=== PATIENT | female | born 1970 | race African-American/Black ===

== ENCOUNTER → 2019-09-23 15:51 | Emergency (ER) | payer SELFPAY ==
[~2019-09-23] VITALS: Ht 157.5 cm; Wt 68.0 kg
[~2019-09-23 15:51] MED LIST: GABA300C10 PO; METOCLOPRAMIDE HCL 5MG/ml INJ 2ml VIAL IM ONE; METOCLOPRAMIDE HCL 5MG/ml INJ 2ml VIAL IV ONE; NALBUPHINE HCL 10 MG/1ml INJECTION IM ONE; NALBUPHINE HCL 10 MG/1ml INJECTION IV ONE; OMEP20CA74 PO
[2019-09-23 17:57] VITALS: BP 129/89
== END | disposition home or self-care (01) ==
LOC: EDUNIT# 15:50 → ER 15:51 → EDBD 15:51
DX: S20.211A Contusion of right front wall of thorax, initial encounter (principal); M62.838 Other muscle spasm; S20.229A Contusion of unspecified back wall of thorax, initial encounter; K21.9 Gastro-esophageal reflux disease without esophagitis; V89.2XXA Person injured in unspecified motor-vehicle accident, traffic, initial encounter; Y93.89 Activity, other specified; Y92.410 Unspecified street and highway as the place of occurrence of the external cause; Y99.8 Other external cause status; Z88.0 Allergy status to penicillin; Z88.6 Allergy status to analgesic agent
CPT/HCPCS: 70450; 72125; 72128; 72131; 96372; 99284; J2300; J2765

== ENCOUNTER 2020-06-20 20:30 | Inpatient (IN) | payer MEDICAID ==
[~2020-06-20] VITALS: Ht 160 cm; Wt 56.7 kg
[~2020-06-20 20:30] MED LIST changes: -METOCLOPRAMIDE HCL 5MG/ml INJ 2ml VIAL IM ONE; -METOCLOPRAMIDE HCL 5MG/ml INJ 2ml VIAL IV ONE; -NALBUPHINE HCL 10 MG/1ml INJECTION IM ONE; -NALBUPHINE HCL 10 MG/1ml INJECTION IV ONE
[2020-06-20] MEDS ORDERED: ONDANSETRON HCL 4 MG/2 ML VIAL IV ONE (23:15)
[2020-06-20] MEDS ORDERED: MORPHINE SULFATE 4 MG/ML SYR/VIAL IV ONE (23:15)
[2020-06-20 23:41] LABS: Basophils # (auto) 0.1 10 ^3/uL (0-0.2); Basophils % (auto) 0.7 % (0.0-2.0); Eosinophils # (auto) 0 10 ^3/uL (0-0.8); Eosinophils % (auto) 0.1 % (0.0-7.0); Hematocrit 39.9 % (36.0-46.0); Hemoglobin 13.2 g/dL (12.2-16.2); Lymphocytes # (auto) 1.6 10 ^3/uL (0.4-5.4); Lymphocytes % (auto) 17.3 % (10.0-50.0); Mean Corpuscular Hemoglobin 33.1 pg (28.0-32.0); Mean Corpuscular Volume 100.2 fL (80.0-100.0); Monocytes # (auto) 0.7 10 ^3/uL (0-1.3); Monocytes % (auto) 6.9 % (0.0-12.0); Neutrophils # (auto) 7.1 10 ^3/uL (1.6-8.6); Nucleated Red Blood Cells % 0.2 %; Platelet Count (auto) 87 10^3/uL (140-450); Red Blood Cells 3.99 10^6/uL (4.0-5.20); Red Cell Distribution Width 14.6 % (11.8-14.3); White Blood Cell 9.5 10^3/uL (4.4-10.8)
[2020-06-20 23:56] LABS: INR 1.13 (0.9-1.15); Partial Thromboplastin Time 29.9 sec (23.0-31.2)
[2020-06-21 01:01] LABS: Albumin 2.2 g/dL (3.4-5.0); BUN/Creatinine Ratio 10.3; Calcium 8.2 mg/dL (8.5-10.1); Potassium 3.6 mmol/L (3.5-5.1)
[2020-06-21 01:04] LABS: Bilirubin, Total 1.7 mg/dL (0.2-1.0); Total Protein 6.7 g/dL (6.4-8.2)
[2020-06-21] MEDS ORDERED: SODIUM CHLORIDE 0.9% 1,000 ML IV ONE (02:00)
[2020-06-21] MEDS ORDERED: diphenhdrAMINE HCL 50 MG/1 ML VL IV ONE (04:30)
[2020-06-21] MEDS ORDERED: MORPHINE SULFATE 4 MG/ML SYR/VIAL IV ONE (04:30)
[2020-06-21 04:34] LABS: Urine Bacteria NONE SEEN /hpf (None Seen); Urine Blood Negative /uL (Negative); Urine Hyaline Cast MANY /lpf (0 - 2); Urine Mucus MODERATE (None Seen); Urine Specific Gravity 1.024 (1.001-1.035); Urine WBC <1 /hpf (0 - 5)
[2020-06-21] MEDS ORDERED: ACETAMINOPHEN 325 MG TAB PO PRN (06:45)
[2020-06-21] MEDS ORDERED: LORazepam 0.5 MG TAB PO PRN (06:45)
[2020-06-21] MEDS ORDERED: DOCUSATE SOD 100 MG CAP PO PRN (06:45)
[2020-06-21] MEDS ORDERED: ONDANSETRON HCL 4 MG/2 ML VIAL IV PRN (06:45)
[2020-06-21] MEDS ORDERED: TEMAZEPAM 15 MG CAP PO PRN (06:45)
[2020-06-21 08:40] LABS: Calcium 7.4 mg/dL (8.5-10.1); Potassium 3.9 mmol/L (3.5-5.1)
[2020-06-21 08:43] LABS: BUN/Creatinine Ratio 10.3
[2020-06-21] MEDS: MORPHINE SULF INJ 2 MG/ML SYRINGE 1ML IV PRN ×2 (09:09→14:25)
[2020-06-21 09:37] LABS: Basophils # (auto) 0 10 ^3/uL (0-0.2); Eosinophils # (auto) 0 10 ^3/uL (0-0.8); Eosinophils % (auto) 0.2 % (0.0-7.0); Hemoglobin 12.9 g/dL (12.2-16.2); Red Blood Cells 3.88 10^6/uL (4.0-5.20); White Blood Cell 9.5 10^3/uL (4.4-10.8)
[2020-06-21 09:39] LABS: Basophils % (auto) 0.2 % (0.0-2.0); Hematocrit 39.8 % (36.0-46.0); Lymphocytes % (auto) 20.8 % (10.0-50.0); Mean Corpuscular Hemoglobin 33.3 pg (28.0-32.0); Mean Corpuscular Hgb Conc. 32.5 g/dL (32.0-36.0); Mean Corpuscular Volume 102.6 fL (80.0-100.0); Monocytes # (auto) 0.7 10 ^3/uL (0-1.3); Monocytes % (auto) 7.5 % (0.0-12.0); Neutrophils # (auto) 6.8 10 ^3/uL (1.6-8.6); Neutrophils % (auto) 71.3 % (37.0-80.0); Nucleated Red Blood Cells % 0.2 %; Platelet Count (auto) 82 10^3/uL (140-450); Red Cell Distribution Width 15.2 % (11.8-14.3)
--- NOTE | 2020-06-21 10:05 | NUR ---
[facility] admit from ER ALEKSANDRA,NOEL admitted to [facility] after SBAR received. Patient oriented to ANEL BHAKTA RN primary RN, unit, room, bed, and unit policies regarding patient care and visiting hours. Patient weighed by bedscale and encouraged to call if they need something. All questions and concerns addressed, patient verbalized understanding.
[2020-06-21 10:26] VITALS: BP 140/106
[2020-06-21] MEDS: HYDROcodone-ACET 5/325MG TAB PO PRN ×2 (11:56→20:04)
[2020-06-21] MEDS ORDERED: HYDR-531 PO (12:05)
[2020-06-21 13:00] VITALS: BP 139/105
[2020-06-21] MEDS ORDERED: PROPRANOLOL HCL 20 MG TAB PO ONE ×2 (13:30→13:45)
[2020-06-21] MEDS ORDERED: IOHEXOL 300 MG/ML 100ML BOTTLE IJ ONE (16:04)
[2020-06-21 17:20] VITALS: BP 122/95
--- NOTE | 2020-06-21 18:59 | NUR ---
Closing Shift Note Patient resting in bed. No distress noted. Will endorse care to the manufacturing supervisor 2nd shift RN.
[2020-06-21] MEDS: PROPRANOLOL HCL 20 MG TAB PO SCH (20:04)
--- NOTE | 2020-06-21 21:00 | NUR ---
Opening Shift Note Assumed care of patient, awake and alert. No S/S of distress/SOB, C/O ABDOMINAL PAIN, 5/10, NORCO GIVEN ORDERED. Instructed on POC and to call for assist PRN, will continue to monitor for changes Q1hr and PRN. Endorsed care to ANGELA Aleman.
--- NOTE | 2020-06-21 21:15 | NUR ---
Patient resting comfortably in bed no distress noted. Abdomen large and distended. Resp even and unlabored. No SOB.
[2020-06-21 22:00] VITALS: BP 110/94
[2020-06-21] MEDS ORDERED: PROPRANOLOL HCL 20 MG TAB PO SCH (22:00)
[2020-06-22] MEDS: HYDROcodone-ACET 5/325MG TAB PO PRN ×3 (04:27→20:44)
--- NOTE | 2020-06-22 04:27 | NUR ---
Patient complains of pain to right shoulder, lower back and lower abdomen. Pain rated 7/10; medicated with [place] 5/325 mg.
[2020-06-22 05:00] VITALS: BP 107/76
[2020-06-22 06:06] LABS: Basophils # (auto) 0.1 10 ^3/uL (0-0.2); Basophils % (auto) 0.6 % (0.0-2.0); Lymphocytes # (auto) 2.4 10 ^3/uL (0.4-5.4); Neutrophils # (auto) 6.4 10 ^3/uL (1.6-8.6)
[2020-06-22 06:08] LABS: Eosinophils # (auto) 0 10 ^3/uL (0-0.8); Eosinophils % (auto) 0.4 % (0.0-7.0); Hematocrit 37.9 % (36.0-46.0); Hemoglobin 12.6 g/dL (12.2-16.2); Mean Corpuscular Hemoglobin 33.7 pg (28.0-32.0); Mean Corpuscular Hgb Conc. 33.2 g/dL (32.0-36.0); Mean Corpuscular Volume 101.5 fL (80.0-100.0); Monocytes # (auto) 0.7 10 ^3/uL (0-1.3); Monocytes % (auto) 6.9 % (0.0-12.0); Neutrophils % (auto) 67.1 % (37.0-80.0); Nucleated Red Blood Cells % 0.3 %; Platelet Count (auto) 80 10^3/uL (140-450); Red Blood Cells 3.73 10^6/uL (4.0-5.20); Red Cell Distribution Width 14.7 % (11.8-14.3); White Blood Cell 9.5 10^3/uL (4.4-10.8)
[2020-06-22 06:31] LABS: BUN/Creatinine Ratio 11.5
[2020-06-22 06:34] LABS: Bilirubin, Total 1.1 mg/dL (0.2-1.0); Total Protein 6.3 g/dL (6.4-8.2)
--- NOTE | 2020-06-22 07:30 | NUR ---
Opening Shift Note Assuming care of patient at this time. Patient is awake and alert. Patient denies pain. Patient states, "I feel better today." Patient shows no signs or symptoms of distress or shortness of breath. Bed is locked and lowered with side rails up x2. Instructed patient on the plan of care for today and to call for assistance as needed. Call light within reach. Will continue to round hourly and as needed.
[2020-06-22 09:00] VITALS: BP 97/74
[2020-06-22] MEDS: SPIRONOLACTONE 25 MG TAB PO SCH (09:46)
[2020-06-22] MEDS: FUROSEMIDE 20 MG TAB PO SCH (09:46)
[2020-06-22] MEDS: PROPRANOLOL HCL 20 MG TAB PO SCH ×2 (10:00→22:00)
[2020-06-22 13:00] VITALS: BP 95/51
[2020-06-22 17:01] VITALS: BP 94/70
--- NOTE | 2020-06-22 19:00 | NUR ---
Opening Shift Note Assumed care of patient, awake and alert. Pt c/o p pain. Instructed on POC and to call for assist PRN, will continue to monitor for changes Q1hr and PRN.
--- NOTE | 2020-06-22 19:21 | NUR ---
Closing Shift Note Patient resting in bed. No distress noted. Report given. Will endorse care to the overnight babysitter RN.
[2020-06-22 22:00] VITALS: BP 84/66
[2020-06-23] MEDS: HYDROcodone-ACET 5/325MG TAB PO PRN ×2 (00:57→21:54)
[2020-06-23 05:00] VITALS: BP 100/77
[2020-06-23 08:00] VITALS: BP 93/68
--- NOTE | 2020-06-23 08:00 | NUR ---
Opening Shift Note Assumed care of patient, awake and alert. No S/S of distress/SOB or pain. tele tech at bedside performing abd ultrasound. Instructed on POC and to call for assist PRN, will continue to monitor for changes Q1hr and PRN.
[2020-06-23 09:00] VITALS: BP 93/68
[2020-06-23] MEDS: PROPRANOLOL HCL 20 MG TAB PO SCH ×2 (09:29→21:53)
--- NOTE | 2020-06-23 09:56 | NUR ---
Dr. Vargas at unit to see pt. Pt. at radiology at this time for paracentesis.
--- NOTE | 2020-06-23 10:06 | NUR ---
PT IN ULTRASOUND FOR A PARACENTESIS WITH DR ALMARAZ. VSS 112/[id number]%. 7100 ML OF ASCITES FLUID REMOVED. SPECIMEN SENT TO LAB
--- NOTE | 2020-06-23 10:30 | NUR ---
Pt. back in room from radiology. V/S taken BP 102/76, HR 93.
[2020-06-23] MEDS: SPIRONOLACTONE 25 MG TAB PO SCH (10:38)
[2020-06-23] MEDS: FUROSEMIDE 20 MG TAB PO SCH (10:39)
[2020-06-23] MEDS: MORPHINE SULF INJ 2 MG/ML SYRINGE 1ML IV PRN (10:49)
[2020-06-23 12:46] VITALS: BP 88/58
[2020-06-23 17:00] VITALS: BP 91/64
[2020-06-23 22:13] VITALS: BP 98/66
[2020-06-24 05:00] VITALS: BP 94/49
[2020-06-24 07:10] LABS: Basophils # (auto) 0 10 ^3/uL (0-0.2); Basophils % (auto) 0.4 % (0.0-2.0); Eosinophils # (auto) 0 10 ^3/uL (0-0.8); Eosinophils % (auto) 0.3 % (0.0-7.0); Hemoglobin 12.5 g/dL (12.2-16.2); Lymphocytes # (auto) 2.1 10 ^3/uL (0.4-5.4); Lymphocytes % (auto) 29.6 % (10.0-50.0); Mean Corpuscular Hemoglobin 33.3 pg (28.0-32.0); Mean Corpuscular Volume 100.7 fL (80.0-100.0); Monocytes # (auto) 0.7 10 ^3/uL (0-1.3); Monocytes % (auto) 9.4 % (0.0-12.0); Neutrophils # (auto) 4.2 10 ^3/uL (1.6-8.6); Neutrophils % (auto) 60.3 % (37.0-80.0); Nucleated Red Blood Cells % 0.1 %; Platelet Count (auto) 95 10^3/uL (140-450); Red Blood Cells 3.77 10^6/uL (4.0-5.20); Red Cell Distribution Width 14.6 % (11.8-14.3); White Blood Cell 6.9 10^3/uL (4.4-10.8)
[2020-06-24 07:29] LABS: Albumin 1.9 g/dL (3.4-5.0); Calcium 7.8 mg/dL (8.5-10.1); Potassium 3.8 mmol/L (3.5-5.1)
[2020-06-24 07:33] LABS: BUN/Creatinine Ratio 12.5; Bilirubin, Total 0.6 mg/dL (0.2-1.0); Total Protein 5.8 g/dL (6.4-8.2)
[2020-06-24 08:00] VITALS: BP 89/65
--- NOTE | 2020-06-24 08:00 | NUR ---
Received pt resting sitting on side of the bed, call light within reach, will continue to monitor pt.
[2020-06-24 09:00] VITALS: BP 89/65
--- NOTE | 2020-06-24 09:00 | NUR ---
Pt taken to pre op for EGD.
[2020-06-24] MEDS ORDERED: LIDOCAINE VISCOUS 2% 15ML UD ONE (09:02)
[2020-06-24] MEDS ORDERED: MIDAZOLAM HCL 5 MG/ML-1ML VIAL ONE (09:02)
[2020-06-24] MEDS ORDERED: FLUMAZENIL 0.1 MG/ML INJ 10ML MDV IV ONE (09:02)
[2020-06-24] MEDS ORDERED: NALOXONE HCL 0.4 MG/ML VIAL ONE (09:02)
[2020-06-24] MEDS ORDERED: fentaNYL CITRATE 100 MCG/2 ML VL ONE (09:03)
[2020-06-24] MEDS ORDERED: diphenhdrAMINE HCL 50 MG/1 ML VL ONE (09:03)
[2020-06-24] MEDS ORDERED: SODIUM CHLORIDE LOCK 10 ML ONE (09:03)
[2020-06-24] MEDS: FUROSEMIDE 20 MG TAB PO SCH (10:00)
[2020-06-24] MEDS: SPIRONOLACTONE 25 MG TAB PO SCH (10:00)
[2020-06-24] MEDS: PROPRANOLOL HCL 20 MG TAB PO SCH ×2 (10:00→21:34)
--- NOTE | 2020-06-24 11:13 | NUR ---
Pt back from GI lab, pt's v/s BP 88/68, HR 77, pt denies any pain or discomfort at this time, will continue to monitor pt.
[2020-06-24 12:54] VITALS: BP 120/85
--- NOTE | 2020-06-24 15:45 | NUR ---
Nutrition Assessment Notes please see attached link for complete assessment [employer] needs IBW 52 [id number] kcals (25-30kcal/kgIBW), Est Protein needs: 52-67 gms/day (1.0-1.3 gm/kgBW r/t hypoalb). Will continue to monitor and reassess per dry body wt Addendum: 06/24/20 at [address] Amended: Links added.
[2020-06-24 17:00] VITALS: BP 101/65
--- NOTE | 2020-06-24 19:30 | NUR ---
Opening Shift Note Assumed care of patient, awake and alert. No S/S of distress/SOB or pain. Instructed on POC and to call for assist PRN, will continue to monitor for changes Q1hr and PRN.
[2020-06-24] MEDS: HYDROcodone-ACET 5/325MG TAB PO PRN (21:36)
[2020-06-24 22:00] VITALS: BP_SYST 111; BP_SYST 123; BP_DIAS 77; BP_DIAS 82
[2020-06-25] MEDS: HYDROcodone-ACET 5/325MG TAB PO PRN (04:22)
--- NOTE | 2020-06-25 04:23 | NUR ---
Pain Medication administered Blood pressure 104/61, RR 18, O2 sat 95, HR 85
[2020-06-25 05:00] VITALS: BP 91/52
[2020-06-25 06:52] LABS: Basophils # (auto) 0 10 ^3/uL (0-0.2); Basophils % (auto) 0.8 % (0.0-2.0); Eosinophils # (auto) 0 10 ^3/uL (0-0.8); Eosinophils % (auto) 0.5 % (0.0-7.0); Hematocrit 33.8 % (36.0-46.0); Lymphocytes # (auto) 1.7 10 ^3/uL (0.4-5.4); Lymphocytes % (auto) 30.6 % (10.0-50.0); Mean Corpuscular Hemoglobin 32.7 pg (28.0-32.0); Mean Corpuscular Hgb Conc. 32.6 g/dL (32.0-36.0); Mean Corpuscular Volume 100.4 fL (80.0-100.0); Monocytes # (auto) 0.6 10 ^3/uL (0-1.3); Monocytes % (auto) 11.9 % (0.0-12.0); Neutrophils % (auto) 56.2 % (37.0-80.0); Nucleated Red Blood Cells % 0.1 %; Platelet Count (auto) 84 10^3/uL (140-450); Red Blood Cells 3.36 10^6/uL (4.0-5.20); Red Cell Distribution Width 14.7 % (11.8-14.3); White Blood Cell 5.4 10^3/uL (4.4-10.8)
[2020-06-25 07:11] LABS: Albumin 1.6 g/dL (3.4-5.0); Calcium 7.5 mg/dL (8.5-10.1); Potassium 3.6 mmol/L (3.5-5.1)
[2020-06-25 07:14] LABS: Bilirubin, Total 0.4 mg/dL (0.2-1.0)
--- NOTE | 2020-06-25 07:32 | NUR ---
Opening Shift Note Assumed care of patient from noc shift rn, awake and alert. No S/S of distress/SOB, denies pain at this time. Plan of care discussed, encouraged to call for assist PRN, will continue to monitor for changes Q1hr and PRN.
[2020-06-25 08:00] VITALS: BP 100/69
--- NOTE | 2020-06-25 08:42 | NUR ---
Dr. Vargas at bedside, discussed discharge plans with patient. will continue to monitor q1hr and prn.
[2020-06-25 09:00] VITALS: BP 100/69
[2020-06-25] MEDS: SPIRONOLACTONE 25 MG TAB PO SCH (09:53)
[2020-06-25] MEDS: FUROSEMIDE 20 MG TAB PO SCH (09:53)
[2020-06-25] MEDS: PROPRANOLOL HCL 20 MG TAB PO SCH (09:55)
--- NOTE | 2020-06-25 09:56 | NUR ---
Held Lasix and inderal vitals 98.6/ 71/ 18/ 95/70 blood pressure is 100/69 on recheck patient accepted to take aldactone 50mg as scheduled.
--- NOTE | 2020-06-25 10:00 | NUR ---
assessment Patient is a 49 year old female who is alert and oriented. Patients cognitive abilities are intact. Prior to admission patient lived home with family and functioned independently. Patient informed me she is able to care for her own ADLs. Per patient she will return home to her prior living arrangements post discharge and family will transport her home. Patient informed me she has no need for DME or oxygen. Patient has been admitted for cirrhosis of the live, alcohol dependence. I have offered patient resources for ETOH inpatient or out patient facilities. Patient koehler declined resources. Patient states this hospitalization has made her see that it is not worth drinking anymore. Patient feels safe returning home on discharge. Patient has no other discharge needs identified. I informed patient she has a right to speak to a 7th grade social studies teacher regarding all care. I informed patient she has a right to participate in any and all discharge planning. Patient does not have a POA and advanced directive. I have offered patient information on POA and advanced directives. I informed the patient the advantages and benefits of having an Advanced Directive. Patient verbalized understanding and agreed to discharge plan. Addendum: 06/25/20 at 1009 by Melody MARLOW Amended: Links added.
[2020-06-25 11:55] VITALS: BP 100/69
[2020-06-25 13:00] VITALS: BP 123/77
--- NOTE | 2020-06-25 14:25 | NUR ---
PATIENT DISCHARGED PER MD'S ORDER. PATIENT ALERT, ORIENTED AND AMBULATORY AT THIS TIME. DISCHARGE SUMMARY AND FOLLOW UP INSTRUCTIONS PROVIDED. PATIENT PROVIDED WITH NEW PRESCRIPTION. IV DISCONTINUED AND PRESSURE DRESSING APPLIED.
== END 2020-06-25 14:25 | disposition home or self-care (01) | DRG 280 ==
LOC: EDBD 20:30 → ER 20:30 → OVERFLOW 20:31 → WEST WING 06-21 10:19
PROVIDERS: ADMIT Hospitalist; ATTEND Internal Medicine
PROC: 0W9G3ZZ Drainage of Peritoneal Cavity, Percutaneous Approach (ICD-10-PCS; 2020-06-23)
PROC: 0DJ08ZZ Inspection of Upper Intestinal Tract, Via Natural or Artificial Opening Endoscopic (ICD-10-PCS; principal; 2020-06-24 09:29)
DX: K70.31 Alcoholic cirrhosis of liver with ascites (principal); F10.20 Alcohol dependence, uncomplicated; D69.3 Immune thrombocytopenic purpura; Z20.828 Contact with and (suspected) exposure to other viral communicable diseases; D69.59 Other secondary thrombocytopenia; E43 Unspecified severe protein-calorie malnutrition; K31.89 Other diseases of stomach and duodenum; G89.4 Chronic pain syndrome; K76.6 Portal hypertension; K21.9 Gastro-esophageal reflux disease without esophagitis; Y90.9 Presence of alcohol in blood, level not specified; Z68.22 Body mass index [BMI] 22.0-22.9, adult; Z88.5 Allergy status to narcotic agent; Z88.0 Allergy status to penicillin; D63.8 Anemia in other chronic diseases classified elsewhere
CPT/HCPCS: 10022; 36415; 71045; 71250; 74176; 74178; 76705; 76942; 80048; 80053; 80061; 80320; 81001; 82140; 83605; 84484; 84702; 85025; 85610; 85730; 87040; 87205; 87426; 89051; 93005; G0378; J2250; J2405

== ENCOUNTER 2021-08-07 01:06 | Emergency (ER) | payer MEDICAID ==
[~2021-08-07] VITALS: Ht 157.5 cm; Wt 68.0 kg
[~2021-08-07 01:06] MED LIST changes: +HYDR-531 PO
[2021-08-07 01:27] VITALS: BP 132/94
[2021-08-07] MEDS ORDERED: TETANUS-DIPTH-ACEL PERTUSSIS 0.5ML SYR Tdap IM ONE (01:30)
[2021-08-07] MEDS ORDERED: HYDROcodone-ACET 5/325MG TAB PO ONE (02:00)
[2021-08-07] MEDS ORDERED: BACITRACIN INJ 50000 UNIT VIAL TOP ONE (02:15)
[2021-08-07] MEDS ORDERED: BACITRACIN TOP OINT 1 UD PKG TOP ONE (02:30)
== END 2021-08-07 04:27 | disposition home or self-care (01) ==
LOC: EDBD 01:06 → ER 01:08
DX: S41.151A Open bite of right upper arm, initial encounter (principal); K21.9 Gastro-esophageal reflux disease without esophagitis; F17.210 Nicotine dependence, cigarettes, uncomplicated; Z79.899 Other long term (current) drug therapy; Z88.0 Allergy status to penicillin; Z88.8 Allergy status to other drugs, medicaments and biological substances; Z91.013 Allergy to seafood; W50.3XXA Accidental bite by another person, initial encounter; Y93.89 Activity, other specified; Y92.89 Other specified places as the place of occurrence of the external cause; Y99.8 Other external cause status
CPT/HCPCS: 90471; 90715